=== PATIENT | male | born 1995 | race Caucasian/White ===

== ENCOUNTER 2019-02-09 06:35 | Emergency (ER) | payer SELFPAY ==
--- NOTE | 2019-02-09 07:14 | EDM.PDOC ---
ED HPI GENERAL MEDICAL PROBLEM - General Chief Complaint: Skin Complaint Stated Complaint: ABSCESS IN RECTAL AREA Time Seen by Provider: 02/09/19 07:12 Source of Information: Reports: Patient - History of Present Illness INITIAL COMMENTS - FREE TEXT/NARRATIVE: HISTORY AND PHYSICAL: History of present illness: [Patient presents with perirectal abscess, pain with bowel movements, he has been fasting to avoid bowel movements today he has had 5 out of 10 pain worsened by movement no pain at rest no fever nausea vomiting chills sweats] Review of systems: As per history of present illness and below otherwise all systems reviewed and negative. Past medical history: As per history of present illness and as reviewed below otherwise noncontributory. Surgical history: As per history of present illness and as reviewed below otherwise noncontributory. Social history: No reported history of drug or alcohol abuse. Family history: As per history of present illness and as reviewed below otherwise noncontributory. Physical exam: HEENT: Atraumatic, normocephalic, pupils reactive, negative for conjunctival pallor or scleral icterus, mucous membranes moist, throat clear, neck supple, nontender, trachea midline. Lungs: Clear to auscultation, breath sounds equal bilaterally, chest nontender. Heart: S1S2, regular, negative for clicks, rubs, or JVD. Abdomen: Soft, nondistended, nontender. Negative for masses or hepatosplenomegaly. Negative for costovertebral tenderness. Pelvis: Stable nontender. Genitourinary: Deferred. Rectal: Swelling and fluctuance perirectal area approximately 2:00 with fluctuance, I&D performed copious exudative drainage Extremities: Atraumatic, negative for cords or calf pain. Neurovascular unremarkable. Neuro: Awake, alert, oriented. Cranial nerves II through XII unremarkable. Cerebellum unremarkable. Motor and sensory unremarkable throughout. Exam nonfocal. Diagnostics: [CBC CMP UA CT abdomen pelvis with contrast ]Culture obtained Therapeutics: Cipro 500 by mouth now and twice a day #20 no refill Flagyl 500 by mouth 3 times a day #30 no refil Lidocaine Wound cleansed Lidocaine I&D performed no complication or complaint Iodoform packing is placed Did speak with Dr. Crowe, will follow in clinic tomorrow l ] Impression: I&D [periRectal abscess ] Definitive disposition and diagnosis as appropriate pending reevaluation and review of above. mid buttock area Pain Score (Numeric/FACES): 8 - Related Data Allergies Allergy/AdvReac Type Severity Reaction Status Date / Time No Known Allergies Allergy Verified 02/09/19 06:48 Home Meds: Home Meds . [No Known Home Meds] 02/09/19 [History] Past Medical History HEENT History: Reports: None Cardiovascular History: Reports: None Respiratory History: Reports: None Gastrointestinal History: Reports: None Genitourinary History: Reports: None Musculoskeletal History: Reports: None Neurological History: Reports: None Psychiatric History: Reports: None Endocrine/Metabolic History: Reports: None Hematologic History: Reports: None Immunologic History: Reports: None Oncologic (Cancer) History: Reports: None Dermatologic History: Reports: None - Infectious Disease History Infectious Disease History: Reports: None - Past Surgical History Head Surgeries/Procedures: Reports: None Social & Family History - Family History Family Medical History: Noncontributory - Tobacco Use Smoking Status *Q: Never Smoker - Caffeine Use Caffeine Use: Reports: Coffee - Recreational Drug Use Recreational Drug Use: No ED ROS GENERAL - Review of Systems Review Of Systems: See Below ED EXAM, SKIN/RASH Exam: See Below Course - Vital Signs Last Recorded V/S: Last Vital Signs Temp 97 F 02/09/19 06:49 Pulse 89 02/09/19 08:20 Resp 18 02/09/19 08:20 BP 116/50 L 02/09/19 08:20 Pulse Ox 99 02/09/19 08:20 - Orders/Labs/Meds Orders: Active Orders 24 hr Category Date Time Status CULTURE WOUND [RM] Stat Lab 02/09/19 09:17 Ordered Labs: Laboratory Tests 02/09/19 02/09/19 02/09/19 Range/Units 07:15 07:20 07:20 WBC 9.54 (4.0-11.0) K/uL RBC 5.08 (4.50-5.90) M/uL Hgb 15.5 (13.0-17.0) g/dL Hct 45.1 (38.0-50.0) % MCV 88.8 (80.0-98.0) fL MCH 30.5 (27.0-32.0) pg MCHC 34.4 (31.0-37.0) g/dL RDW Std Deviation 40.4 (28.0-62.0) fl RDW Coeff of Jacquelin 13 (11.0-15.0) % Plt Count 167 (150-400) K/uL MPV 10.20 (7.40-12.00) fL Neut % (Auto) 76.6 (48.0-80.0) % Lymph % (Auto) 13.2 L (16.0-40.0) % [place] % (Auto) 9.5 (0.0-15.0) % Eos % (Auto) 0.5 (0.0-7.0) % Baso % (Auto) 0.2 (0.0-1.5) % Neut # (Auto) 7.3 H (1.4-5.7) K/uL Lymph # (Auto) 1.3 (0.6-2.4) K/uL [place] # (Auto) 0.9 H (0.0-0.8) K/uL Eos # (Auto) 0.1 (0.0-0.7) K/uL Baso # (Auto) 0.0 (0.0-0.1) K/uL Nucleated RBC % 0.0 /100WBC Nucleated RBCs # 0 K/uL Sodium 137 (136-148) mmol/L Potassium 4.4 (3.5-5.1) mmol/L Chloride 99 (98-107) mmol/L Carbon Dioxide 26.8 (21.0-32.0) mmol/L BUN 16 (7.0-18.0) mg/dL Creatinine 1.2 (0.8-1.3) mg/dL Est Cr Clr Drug Dosing 114.43 mL/min Estimated GFR (MDRD) > 60.0 ml/min Glucose 84 (74-106) mg/dL Calcium 9.5 (8.5-10.1) mg/dL Total Bilirubin 1.1 H (0.2-1.0) mg/dL AST 16 (15-37) IU/L ALT 26 (14-63) IU/L Alkaline Phosphatase 62 (46-116) U/L Total Protein 8.1 (6.4-8.2) g/dL Albumin 4.4 (3.4-5.0) g/dL Globulin 3.7 (2.6-4.0) g/dL Albumin/Globulin Ratio 1.2 (0.9-1.6) Urine Color YELLOW Urine Appearance CLEAR Urine pH 6.0 (5.0-8.0) Ur Specific [place] <= 1.005 (1.001-1.035) Urine Protein NEGATIVE (NEGATIVE) mg/dL Urine Glucose (UA) NEGATIVE (NEGATIVE) mg/dL Urine Ketones TRACE H (NEGATIVE) mg/dL Urine Occult Blood NEGATIVE (NEGATIVE) Urine Nitrite NEGATIVE (NEGATIVE) Urine Bilirubin NEGATIVE (NEGATIVE) Urine Urobilinogen 0.2 (<2.0) EU/dL Ur Leukocyte Esterase NEGATIVE (NEGATIVE) Meds: Medications Discontinued Medications Generic Name Dose Route Start Last Admin Trade Name Freq PRN Reason Stop Dose Admin Ciprofloxacin 500 mg 02/09/19 09:16 Ciprofloxacin Hcl PO 02/09/19 09:17 ONETIME ONE Sodium Chloride 1,000 mls @ 999 mls/hr 02/09/19 08:06 02/09/19 08:19 Normal Saline IV 02/09/19 09:06 999 mls/hr STAT ONE Administration Lidocaine HCl Confirm 02/09/19 09:02 02/09/19 09:08 Xylocaine-Mpf 1% Administered 02/09/19 09:03 Not Given Dose 10 mls @ as directed .ROUTE .STK-MED ONE Iopamidol 100 ml 02/09/19 08:14 02/09/19 08:15 Isovue Multipack-370 (76%) IVPUSH 02/09/19 08:15 100 ml ONETIME STA Administration Ketorolac Tromethamine 30 mg 02/09/19 08:58 02/09/19 09:03 Toradol IVPUSH 02/09/19 08:59 30 mg ONETIME ONE Administration Lidocaine HCl 10 ml 02/09/19 09:07 02/09/19 09:09 Xylocaine-Mpf 1% INJECT 02/09/19 09:08 10 ml ONETIME ONE Administration Departure - Departure Time of Disposition: 09:24 Disposition: Home, Self-Care 01 Condition: Good Clinical Impression: Abscess - Discharge Information Referrals: PCP,None [Primary Care Provider] - Forms: ED Department Discharge Additional Instructions: Medication as prescribed Return if symptoms persist or worsen Follow-up with general surgery tomorrow at 9 AM Wound clean and dry Packing in as discussed [facility] - General Surgery Professional Building [address] [place] [address], [address] [place] [address] dr Sanchez will be expecting you The following information is given to patients seen in the emergency department who are being discharged to home. This information is to outline your options for follow-up care. We provide all patients seen in our emergency department with a follow-up referral. The need for follow-up, as well as the timing and circumstances, are variable depending upon the specifics of your emergency department visit. If you don't have a primary care physician on staff, we will provide you with a referral. We always advise you to contact your personal physician following an emergency department visit to inform them of the circumstance of the visit and for follow-up with them and/or the need for any referrals to a consulting specialist. The emergency department will also refer you to a specialist when appropriate. This referral assures that you have the opportunity for follow-up care with a specialist. All of these measure are taken in an effort to provide you with optimal care, which includes your follow-up. Under all circumstances we always encourage you to contact your private physician who remains a resource for coordinating your care. When calling for follow-up care, please make the office aware that this follow-up is from your recent emergency room visit. If for any reason you are refused follow-up, please contact the [facility] emergency department at and asked to speak to the emergency department charge nurse. - My Orders Last 24 Hours: My Active Orders 02/09/19 09:17 CULTURE WOUND [RM] Stat - Assessment/Plan Last 24 Hours: My Active Orders 02/09/19 09:17 CULTURE WOUND [RM] Stat
[2019-02-09 07:49] LABS: CHLORIDE,CL 99 mmol/L (98-107); SODIUM,NA 137 mmol/L (136-148)
[2019-02-09] MEDS ORDERED: Sodium Chloride 0.9% 1,000 ML IV ONE (08:06)
[2019-02-09] MEDS ORDERED: Iopamidol 755 MG/ML 500 ML Multipack Bottle IVPUSH STA (08:14)
--- NOTE | 2019-02-09 08:52 | CT ---
INDICATION: Gluteal pain and swelling. Question abscess. TECHNIQUE: A CT volumetric acquisition was performed of the abdomen and pelvis during the intravenous infusion of 100 cc of Isovue-370 nonionic intravenous contrast. FINDINGS: The lung bases are clear. There is no evidence of pleural or pericardial fluid. The patient`s liver and spleen demonstrate normal size and uniform enhancement. There is no evidence of mass or inflammation within the pancreas or stomach. Gallbladder and bile ducts appear normal. The adrenal glands have normal morphology. The kidneys show uniform enhancement. There is no evidence of retroperitoneal lymphadenopathy or hemorrhage. The patient`s small intestine and colon appear normal. There is no evidence of inflammation within the small bowel mesentery or greater omentum. Prostate gland and partially filled urinary bladder appear normal. On image 135 there is a small 1.5 cm pocket of fluid at the right posterior margin of the anus. There is no evidence of extension into the lateral ischial rectal fossa fat. The collection lies just beneath the skin surface. There is no evidence of inflammation within the rectum or mesorectal fat. IMPRESSION: Small subdermal collection of fluid, presumably an abscess, noted at the right posterior margin of the anal verge. Please note that all CT scans at this facility use dose modulation, iterative reconstruction, and/or weight-based dosing when appropriate to reduce radiation dose to as low as reasonably achievable. Dictated by David Montez MD @ Feb 09 2019 8:44AM Signed by Dr. David Montez @ Feb 09 2019 8:51AM
[2019-02-09] MEDS ORDERED: Ketorolac 30 MG/ML SDV IVPUSH ONE (08:58)
[2019-02-09] MEDS ORDERED: Ciprofloxacin 500 MG Tab PO ONE (09:16)
== END 2019-02-09 09:40 | disposition home or self-care (01) ==
LOC: MW.ED 06:35
DX: K61.1 Rectal abscess (principal)
CPT/HCPCS: 36415; 46040; 74177; 80053; 81003; 85025; 87070; 96361; 96374; 99284; A9270; J1885; J2001; J7040; Q9967